=== PATIENT | female | born 1970 | race Caucasian/White ===

== ENCOUNTER 2016-06-07 19:48 | Observation (INO) | payer MEDICARE, MEDICAID ==
[~2016-06-07] VITALS: Ht 170.2 cm; Wt 86.0 kg
[~2016-06-07 19:48] MED LIST: BUSP10 PO; LAMI200T PO; LATU80TA PO; LORA-474 PO; PRIL40CA PO; VENL37.5 PO; XANA2TAB2 PO; ZOLP10TA3 PO
[2016-06-07 19:50] VITALS: BP 135/75; PULSE 77; RESP 18; TEMP 98.1; O2SAT 100
[2016-06-07] MEDS ORDERED: AMBI10TA PO (20:50)
[2016-06-07] MEDS ORDERED: LAMI200T PO (20:50)
[2016-06-07] MEDS ORDERED: HYDR-3516 PO (20:50)
[2016-06-07] MEDS ORDERED: LURA120T PO (20:50)
[2016-06-07] MEDS ORDERED: PROM25TA5 PO (20:50)
[2016-06-07] MEDS ORDERED: EFFE150C PO (20:50)
[2016-06-07] MEDS ORDERED: OMEP40CA2 PO (20:50)
[2016-06-07] MEDS ORDERED: LORazepam 2 MG/ML VIAL IV PUSH ONE (21:15)
[2016-06-07] MEDS ORDERED: diphenhydrAMINE HCL 50 MG/ML VIAL IVP ONE (21:15)
[2016-06-07] MEDS ORDERED: SODIUM CHLORIDE 0.9% FLUSH 10 ML FLUSH IVF PRN (21:15)
[2016-06-07] MEDS ORDERED: PROCHLORPERAZINE INJ 10 MG/2 ML VIAL IVS ONE (21:15)
[2016-06-07] MEDS ORDERED: HYDROmorphone HCL PF 2 MG/ML VIAL IVS ONE (21:15)
--- NOTE | 2016-06-07 21:43 | PD ---
HPI Chief Complaint: Headache Time Seen by Provider: 21:03 Travel History International Travel<30 days: No Contact w/Intl Traveler<30days: No Traveled to known affect area: No History of Present Illness HPI 46-year-old female arrives to the ER complaining of headache. She has suffered with headaches frequently for years. Today she reports a generalized headache for about 1 day. It started gradually. It has been progressively worsening. She was in the ER in [place] yesterday and underwent one CT imaging and lab work which was all normal. She was prescribed Phenergan. She reports no improvement with the Phenergan this morning. The headache severity had improved prior to discharge yesterday. This morning she woke up with a gradually worsening headache again. She reports photophobia. She's had no fever. She's had no neck stiffness. PFSH Past Medical History Hx Anticoagulant Therapy: No Anemia: Yes Anxiety: Yes Depression: Yes (POST ) Cardiovascular Problems: No Chemotherapy: No Cerebrovascular Accident: No Diabetes: No Diminished Hearing: No Gastrointestinal Disorders: Yes (PERITONITIS) Headaches: Yes (tension headaches ) Musculoskeletal: Yes (PARTIALY TORN ACL, COMPLETLY TORN MCL,AND POPLITEAL) Respiratory: No Immunizations Current: Yes Seizures: Yes Influenza Vaccination: Yes ?: Not LMP: dec 2015 : 1 Para: 1 Ovarian Cysts: Yes (RUPTURED) Tubal Ligation: Yes Past Surgical History Abdominal Surgery: Yes (GASTRIC BYPASS 2003) Hysterectomy: No Joint Replacement: Yes (total rt knee arthroplasty) Thoracic Surgery: Yes (L1,L3-5 FX ) Social History Alcohol Use: Yes (OCCASIONAL) Tobacco Use: No Substance Use: No Allergies-Medications (Allergen,Severity, Reaction): Coded Allergies: Fioricet (Verified Allergy, Severe, 06/07/16) Nonsteroidal Anti-Inflammatory Agts (Verified Allergy, Severe, GASTRIC BLEEDING, 07/12/15) Phenobarbital (Verified Allergy, Severe, RASH, 07/12/15) Ultram (Verified Allergy, Severe, Hives, BLEEDING, 07/12/15) Morphine (Verified Adverse Reaction, Intermediate, N/V, 07/12/15) Uncoded Allergies: STEROIDS (Allergy, Severe, GI BLEED, 01/13/11) Reported Meds & Prescriptions Reported Meds & Active Scripts Active Reported Ambien (Zolpidem Tartrate) 10 Mg Tab 10 Mg PO HS PRN Omeprazole 40 Mg Cap 40 Mg PO DAILY Effexor XR 24 HR (Venlafaxine HCl) 150 Mg Cap 150 Mg PO DAILY Latuda (Lurasidone) 120 Mg Tab 120 Mg PO DAILY Lamictal (Lamotrigine) 200 Mg Tab 200 Mg PO BID Phenergan (Promethazine HCl) 25 Mg Tab 25 Mg PO Q6H PRN Hydrocodone-Acetaminophen 5-325 mg Tab 1 Tab PO Q6H PRN Review of Systems Except as stated in HPI: all other systems reviewed are Neg General / Constitutional: No: Fever, Chills Musculoskeletal: Positive: Pain Physical Exam Narrative GENERAL: 46-year-old female well-nourished well-developed SKIN: Focused skin assessment warm/dry. HEAD: Atraumatic. Normocephalic. EYES: Pupils equal and round. No scleral icterus. No injection or drainage. Range of motion of the eyes normal. ENT: No nasal bleeding or discharge. Mucous membranes pink and moist. NECK: Trachea midline. No JVD. CARDIOVASCULAR: Regular rate and rhythm. No murmur appreciated. RESPIRATORY: No accessory muscle use. Clear to auscultation. Breath sounds equal bilaterally. GASTROINTESTINAL: Abdomen soft, non-tender, nondistended. Hepatic and splenic margins not palpable. MUSCULOSKELETAL: No obvious deformities. No clubbing. No cyanosis. No edema. NEUROLOGICAL: Awake and alert. No obvious cranial nerve deficits. Motor grossly within normal limits. Normal speech. PSYCHIATRIC: Appropriate mood and affect; insight and judgment normal. Data Data Last Documented VS Vital Signs Date Time Temp Pulse Resp B/P Pulse Ox O2 Delivery O2 Flow Rate FiO2 06/07/16 21:44 80 14 108/57 97 Room Air 06/07/16 19:50 98.1 Orders Complete Blood Count With Diff (06/07/16 21:15) Basic Metabolic Panel (Bmp) (06/07/16 21:15) Prothrombin Time / Inr (Pt) (06/07/16 21:15) Ecg Monitoring (06/07/16 21:15) Iv Access Insert/Monitor (06/07/16 21:15) Oximetry (06/07/16 21:15) Sodium Chloride 0.9% Flush (Ns Flush) (06/07/16 21:15) Hydromorphone Pf Inj (Dilaudid Pf Inj) (06/07/16 21:15) Diphenhydramine Inj (Benadryl Inj) (06/07/16 21:15) Prochlorperazine Inj (Compazine Inj) (06/07/16 21:15) Lorazepam Inj (Ativan Inj) (06/07/16 21:15) Hydromorphone Pf Inj (Dilaudid Pf Inj) (06/07/16 22:30) Ondansetron Inj (Zofran Inj) (06/07/16 22:30) Hydromorphone Pf Inj (Dilaudid Pf Inj) (06/07/16 23:30) Admit Order (Ed Use Only) (06/07/16 23:41) Labs Laboratory Tests Test 06/07/16 21:10 White Blood Count 9.2 TH/MM3 Red Blood Count 3.88 MIL/MM3 Hemoglobin 12.2 GM/DL Hematocrit 36.1 % Mean Corpuscular Volume 93.0 FL Mean Corpuscular Hemoglobin 31.4 PG Mean Corpuscular Hemoglobin 33.8 % Concent Red Cell Distribution Width 17.6 % Platelet Count 362 TH/MM3 Mean Platelet Volume 9.5 FL Neutrophils (%) (Auto) 66.9 % Lymphocytes (%) (Auto) 22.8 % Monocytes (%) (Auto) 8.5 % Eosinophils (%) (Auto) 0.6 % Basophils (%) (Auto) 1.2 % Neutrophils # (Auto) 6.1 TH/MM3 Lymphocytes # (Auto) 2.1 TH/MM3 Monocytes # (Auto) 0.8 TH/MM3 Eosinophils # (Auto) 0.1 TH/MM3 Basophils # (Auto) 0.1 TH/MM3 CBC Comment DIFF FINAL Differential Comment Prothrombin Time 10.5 SEC Prothromb Time International 1.0 RATIO Ratio Sodium Level 136 MEQ/L Potassium Level 3.7 MEQ/L Chloride Level 102 MEQ/L Carbon Dioxide Level 26.8 MEQ/L Anion Gap 7 MEQ/L Blood Urea Nitrogen 13 MG/DL Creatinine 0.65 MG/DL Estimat Glomerular Filtration 99 ML/MIN Rate Random Glucose 72 MG/DL Calcium Level 8.8 MG/DL MDM Medical Decision Making Medical Screen Exam Complete: Yes Emergency Medical Condition: Yes Medical Record Reviewed: Yes Differential Diagnosis Migraine, tension headache, complex migraine, chronic pain, hyper algesic state , opioid dependence, drug-seeking behavior Narrative Course CBC & BMP Diagram 06/07/16 21:10 The patient received multiple doses of Dilaudid. She also received Compazine and Zofran. She'll be admitted for intractable pain. Discussed with Dr De La Cruz. Head CT yesterday at OSH normal. Diagnosis Primary Impression: Headache Qualified Code: R51 - Intractable episodic headache, unspecified headache type Additional Impression: Intractable pain Admitting Information Admitting Physician Requests: Observation Chuckie Nash MD Jun 07, 2016 21:43
[2016-06-07 21:44] VITALS: BP 108/57; PULSE 80; RESP 14; O2SAT 97
[2016-06-07 22:15] LABS: AUTOMATED NEUTROPHIL # 6.1 TH/MM3 (1.8-7.7); BASOPHIL # 0.1 TH/MM3 (0-0.2); BASOPHIL % 1.2 % (0.0-2.0); EOSINOPHIL # 0.1 TH/MM3 (0-0.4); EOSINOPHIL % 0.6 % (0.0-4.0); HEMATOCRIT 36.1 % (35.0-46.0); HEMO FLAGS DIFF FINAL; LYMPH % 22.8 % (9.0-44.0); LYMPHOCYTE # 2.1 TH/MM3 (1.0-4.8); MEAN CORPUSCULAR HEMOGLOBIN 31.4 PG (27.0-34.0); MEAN CORPUSCULAR HGB CONC 33.8 % (32.0-36.0); MONO % 8.5 % (0.0-8.0); NEUT % 66.9 % (16.0-70.0); PLATELET COUNT 362 TH/MM3 (150-450); RED BLOOD COUNT 3.88 MIL/MM3 (4.00-5.30); RED CELL DISTRIBUTION WIDTH 17.6 % (11.6-17.2); WHITE BLOOD COUNT 9.2 TH/MM3 (4.0-11.0)
[2016-06-07 22:27] LABS: PROTHROMBIN TIME - PATIENT 10.5 SEC (9.8-11.6)
[2016-06-07] MEDS ORDERED: HYDROmorphone HCL PF 1 MG/ML VIAL IV PUSH ONE ×2 (22:30→23:30)
[2016-06-07] MEDS ORDERED: ONDANSETRON HCL 4 MG/2 ML VIAL IV PUSH ONE (22:30)
[2016-06-07 22:39] LABS: BICARBONATE 26.8 MEQ/L (21.0-32.0); POTASSIUM 3.7 MEQ/L (3.5-5.1)
[2016-06-07 23:30] VITALS: BP 125/66; PULSE 75; RESP 16; O2SAT 97
[2016-06-08] VITALS (7 sets, daily range): BP systolic 109–142; BP diastolic 66–94; PULSE 71–108; RESP 16–20; TEMP 97.9–98.9; O2SAT 94–98
[2016-06-08] MEDS ORDERED: BISACODYL 10 MG SUPP PR PRN
[2016-06-08] MEDS ORDERED: SODIUM CHLORIDE 0.9% FLUSH 10 ML FLUSH IV FLUSH PRN
[2016-06-08] MEDS ORDERED: ONDANSETRON HCL 4 MG/2 ML VIAL IVP PRN
[2016-06-08] MEDS ORDERED: ZOLPIDEM TARTRATE 10 MG TAB PO PRN
[2016-06-08] MEDS ORDERED: ACETAMINOPHEN 325 MG TAB PO PRN
[2016-06-08] MEDS: SODIUM CHLOR 0.9% 1000 ML INJ 1,000 ML IV SCH ×3 (00:56→20:45)
--- NOTE | 2016-06-08 03:30 | HHI.HP ---
HPI Service [facility] Primary Care Physician Non-Staff Admission Diagnosis MELÉNDEZ, Intractable Pain Diagnoses: (1) Headache Diagnosis: Principal (2) Intractable pain Diagnosis: Principal (3) Chronic pain Diagnosis: Principal Travel History International Travel<30 Days: No Contact w/Intl Traveler <30 Da: No Traveled to Known Affected Are: No History of Present Illness This is a 46-year-old female with a PMH of Anxiety, Depression, Headache and Chronic Pain on Disability who presented to the ER w/ complaints of severe 9/10 headache w/ associated nausea and vomiting. States symptoms started yesterday, seen at ER in [place], [facility] CT Head negative and d/c'd after 3 doses of IV Dilaudid. Reports symptoms improved at that time, however today had recurrent headache w/ "stabbing pain in my eye". On arrival, BP 125/75, HR 77, O2 sat 97 % on RA, Afebrile. Labs unremarkable. S/p Dilaudid 2mg IV, Benadryl 25mg IV, Compazine 10mg IV and Ativan 1mg IV at same time w/ absolutely no change in pain complaints per patient. Received additional Dilaudid 1mg IV x2 w/ minimal improvement. Per review of previous records, pt has apparently displayed typical drug-seeking behavior, demanding admission for continued narcotics per ER physician notes. This visit, pt has relayed wishes to be admitted for pain control on several occasions. Per patient, she follows w/ Butter Production Supervisor and has "high tolerance" for pain medications. Review of Systems Except as stated in HPI: all other systems reviewed are Neg ROS: 14 point review of systems otherwise negative. Past Family Social History Past Medical History PMH: Anxiety, Depression, Headache and Chronic Pain on Disability Past Surgical History PAST SURGICAL HISTORY: Right Total Knee Arthroplasty, Lumbar Surgery, Gastric Bypass Allergies: Coded Allergies: Fioricet (Verified Allergy, Severe, 06/07/16) Nonsteroidal Anti-Inflammatory Agts (Verified Allergy, Severe, GASTRIC BLEEDING, 07/12/15) Phenobarbital (Verified Allergy, Severe, RASH, 07/12/15) Ultram (Verified Allergy, Severe, Hives, BLEEDING, 07/12/15) Morphine (Verified Adverse Reaction, Intermediate, N/V, 07/12/15) Uncoded Allergies: STEROIDS (Allergy, Severe, GI BLEED, 01/13/11) Family History PAST FAMILY HISTORY: Reviewed. No h/o DM or CAD Social History PAST SOCIAL HISTORY: Occasional alcohol. Negative for tobacco or drugs. Patient is a former RN, currently on disability for back injury. Physical Exam Vital Signs Vital Signs Date Time Temp Pulse Resp B/P Pulse Ox O2 Delivery O2 Flow Rate FiO2 06/07/16 23:30 75 16 125/66 97 Room Air 06/07/16 21:44 80 14 108/57 97 Room Air 06/07/16 20:38 77 06/07/16 19:50 98.1 77 18 135/75 100 Room Air Physical Exam PE: GENERAL: Middle-aged white female in no acute distress. HEENT: PERRLA, EOMI. No scleral icterus or conjunctival pallor. No lid lag or facial droop. CARDIOVASCULAR: Regular rate and rhythm. No obvious murmurs to auscultation. No chest tenderness to palpation. RESPIRATORY: No obvious rhonchi or wheezing. Clear to auscultation. Breath sounds equal bilaterally. GASTROINTESTINAL: Abdomen soft, non-tender, nondistended. BS normal. MUSCULOSKELETAL: Extremities without clubbing, cyanosis, or edema. No obvious deformities. NEUROLOGICAL: Awake, alert and oriented x4. No focal neurologic deficits. Moving both upper and lower extremities spontaneously. Laboratory Laboratory Tests Test 06/07/16 21:10 White Blood Count 9.2 Red Blood Count 3.88 Hemoglobin 12.2 Hematocrit 36.1 Mean Corpuscular Volume 93.0 Mean Corpuscular Hemoglobin 31.4 Mean Corpuscular Hemoglobin 33.8 Concent Red Cell Distribution Width 17.6 Platelet Count 362 Mean Platelet Volume 9.5 Neutrophils (%) (Auto) 66.9 Lymphocytes (%) (Auto) 22.8 Monocytes (%) (Auto) 8.5 Eosinophils (%) (Auto) 0.6 Basophils (%) (Auto) 1.2 Neutrophils # (Auto) 6.1 Lymphocytes # (Auto) 2.1 Monocytes # (Auto) 0.8 Eosinophils # (Auto) 0.1 Basophils # (Auto) 0.1 CBC Comment DIFF FINAL Differential Comment Prothrombin Time 10.5 Prothromb Time International 1.0 Ratio Sodium Level 136 Potassium Level 3.7 Chloride Level 102 Carbon Dioxide Level 26.8 Anion Gap 7 Blood Urea Nitrogen 13 Creatinine 0.65 Estimat Glomerular Filtration 99 Rate Random Glucose 72 Calcium Level 8.8 Result Diagram: 06/07/16210906/07/162109 Assessment and Plan Problem List: (1) Intractable pain ICD Code: R52 Status: Acute (2) Headache ICD Code: R51 Status: Acute (3) Chronic pain ICD Code: G89.29 Status: Acute Assessment and Plan A/P: 1. Intractable Pain: c/o ongoing headache x1 day, previously seen in [place] w/ negative CT Head per patient. S/p multiple doses of Dilaudid IV, Compazine, Ativan and Benadryl, pt reports minimal relief. Vitals stable, labs unremarkable. Per review of previous records, pt w/ drug-seeking behavior, requesting admission for pain control on several occasions on this presentation. Will admit for Observation. Explained to patient that goal is to decrease pain complaints to a tolerable level, unlikely for her to have complete resolution of pain in light of her being a chronic pain patient. Plan is for her to follow w/ her paint coating machine operator as outpatient for adjustments to her home medications. 2. Headache: h/o headache, resume home Lamictal, analgesics as above. 3. Chronic Pain: h/o Chronic Back Pain following back injury per patient, currently on Disability for injury. Previous h/o Dilaudid Pain Pump, apparently non-functional now. Resume home medications, follow up w/ Butter Production Supervisor at time of d/c 4. DVT Prophylaxis: SCD/Teds. 5. Social work for d/c planning as needed. 6. Case discussed w/ ER physician at length. Problem Qualifiers (1) Headache: Qualified Code: R51 - Intractable episodic headache, unspecified headache type Kaylene De La Cruz MD Jun 08, 2016 03:30
[2016-06-08] MEDS: LORazepam 2 MG/ML VIAL IV PUSH PRN ×5 (03:37→23:47)
[2016-06-08] MEDS: diphenhydrAMINE HCL 50 MG/ML VIAL IV PUSH PRN ×3 (03:38→17:12)
[2016-06-08] MEDS: PROCHLORPERAZINE INJ 10 MG/2 ML VIAL IVS PRN ×3 (03:38→17:11)
[2016-06-08] MEDS: HYDROmorphone HCL PF 1 MG/ML VIAL IV PUSH PRN ×5 (03:38→23:46)
[2016-06-08 04:08] LABS: AUTOMATED NEUTROPHIL # 3.2 TH/MM3 (1.8-7.7); BASOPHIL % 0.7 % (0.0-2.0); EOSINOPHIL # 0.1 TH/MM3 (0-0.4); EOSINOPHIL % 1.3 % (0.0-4.0); HEMATOCRIT 32.6 % (35.0-46.0); HEMO FLAGS DIFF FINAL; LYMPHOCYTE # 1.9 TH/MM3 (1.0-4.8); MEAN CELL VOLUME 93.5 FL (80.0-100.0); MEAN CORPUSCULAR HEMOGLOBIN 30.3 PG (27.0-34.0); MEAN CORPUSCULAR HGB CONC 32.4 % (32.0-36.0); MONO % 11.3 % (0.0-8.0); NEUT % 54.7 % (16.0-70.0); PLATELET COUNT 271 TH/MM3 (150-450); RED BLOOD COUNT 3.48 MIL/MM3 (4.00-5.30); RED CELL DISTRIBUTION WIDTH 17.3 % (11.6-17.2); WHITE BLOOD COUNT 5.9 TH/MM3 (4.0-11.0)
[2016-06-08 04:14] LABS: ALT (GPT) 27 U/L (10-53); ANION GAP 7 MEQ/L (5-15); AST (GOT) 18 U/L (15-37); BICARBONATE 27.7 MEQ/L (21.0-32.0); BLOOD UREA NITROGEN 9 MG/DL (7-18); CHLORIDE 106 MEQ/L (98-107); GLOMERULAR FILTRATION RATE 128 ML/MIN (>89); POTASSIUM 3.4 MEQ/L (3.5-5.1); SODIUM (NA) 141 MEQ/L (136-145)
[2016-06-08 04:16] LABS: ALKALINE PHOSPHATASE 75 U/L (45-117); TOTAL BILIRUBIN ADULT 0.4 MG/DL (0.2-1.0)
[2016-06-08] MEDS: lamoTRIgine 100 MG TAB PO SCH ×2 (08:34→20:46)
[2016-06-08] MEDS: LURASIDONE 40 MG TAB PO SCH (08:35)
[2016-06-08] MEDS: VENLAFAXINE HCL XR 75 MG CAP PO SCH (08:36)
[2016-06-08] MEDS: SODIUM CHLORIDE 0.9% FLUSH 10 ML FLUSH IV FLUSH SCH ×2 (08:52→20:46)
--- NOTE | 2016-06-08 12:46 | RADRPT ---
EXAM DATE/TIME: 06/08/2016 12:20 [facility] COMPARISON: CT BRAIN W/O CONTRAST, January 15, 2013, 17:29. INDICATIONS : Cephalgia and dizziness since Wednesday. RADIATION DOSE: 56.77 CTDIvol (mGy) MEDICAL HISTORY : Seizures. SURGICAL HISTORY : None. ENCOUNTER: Initial ACUITY: 3 days PAIN SCALE: 0/10 LOCATION: cranial TECHNIQUE: Multiple contiguous axial images were obtained of the head. Using automated exposure control and adj ustment of the mA and/or kV according to patient size, radiation dose was kept as low as reasonably a chievable to obtain optimal diagnostic quality images. FINDINGS: CEREBRUM: The ventricles are normal for age. No evidence of midline shift, mass lesion, hemorrhage or acute in farction. No extra-axial fluid collections are seen. POSTERIOR FOSSA: The cerebellum and brainstem are intact. The 4th ventricle is midline. The cerebellopontine angle i s unremarkable. EXTRACRANIAL: The visualized portion of the orbits is intact. SKULL: The calvaria is intact. No evidence of skull fracture. CONCLUSION: No acute disease. Shan Vicente MD FACR on June 08, 2016 at 12:44 Board Certified Radiologist. This report was verified electronically.
--- NOTE | 2016-06-08 21:15 | MB ---
cc: CARMELINA DEGROOT MD DATE OF CONSULTATION 06/08/2016 REASON FOR CONSULTATION Intractable migraine headache. HISTORY OF PRESENT ILLNESS Ms. Rodriguez is a 46-year-old female with past medical history significant for chronic headache, depression, anxiety and chronic pain on disability presented to the [facility] ER with complaints of very severe headache with associated nausea and vomiting. The patient states that symptoms started on Wednesday night and seen in the ER at [place]. Head CT scan was negative. She was discharged after she received three doses of IV Dilaudid, reports relieve of the symptoms and then the symptoms recurred with pain mainly in the front and the forehead and described as, "stabbing pain in both eyes", associated with nausea and vomiting. The patient describes her headache as, "tension headache" and this has been ongoing for 10 years and she denies that she has migraine. "I do not have migraine headaches". It is only tension headache and they are usually associated with her menstrual cycle and alcohol seems to aggravate this headache. She denies any family history of migraine headache. She states that her headache is usually in the front or maybe in the back of her head with associated nausea and vomiting and visual blurring and visual symptoms. Denies any relation to noises or light. She was followed up by a neurologist. He had her on Vicodin but she does not follow with a neurologist at this time. The patient uses a lot of pain medication and she was on a Dilaudid pump at some time and follows with pain management for chronic pain in the back, chronic tension headache and chronic neck pain. REVIEW OF SYSTEMS A 12-point review of systems is negative except for what is stated in the HPI. PAST MEDICAL HISTORY 1. Anxiety, depression. 2. Headache. 3. Chronic pain on disability PAST SURGICAL HISTORY 1. Right total knee arthroplasty. 2. Lumbar surgery. 3. Gastric bypass. 4. She has rods and titanium in her body. ALLERGIES FIORICET, NON STEROIDAL ANTI-INFLAMMATORY, PHENOBARBITAL, ULTRAM, AND MORPHINE. FAMILY HISTORY Noncontributory, SOCIAL HISTORY Occasionally drinks alcohol. Denies tobacco or illicit drug use. The patient is a former registered nurse, currently on disability for back injury. PHYSICAL EXAMINATION GENERAL: The patient is a good historian and not in acute distress with family at the bedside. HEENT: Atraumatic, normocephalic. Intact hearing. Intact vision. NECK: Supple. No signs of meningeal irritation. No carotid bruit. CARDIOVASCULAR: Regular rate and rhythm. LUNGS: Clear to auscultation. No wheezes. ABDOMEN: Soft abdomen. MUSCULOSKELETAL: Extremities without clubbing. No cyanosis. Moves all extremities equally. NEUROLOGIC: Awake, alert, oriented to time, person and place. Cranial nerves II-XII are grossly intact. Motor system 5/5 bilateral, symmetrical with occasional give out because of pain. Superficial temperature and pain are intact bilateral and symmetrical both upper and lower extremities. Reflexes are 2+ bilateral, symmetrical. Plantars are bilaterally downgoing. [id number] and [id number]-[id number]-syba are bilaterally. PSYCHOLOGIC: Normal mood and behavior. No visual hallucinations. LABORATORY DATA White blood cells 9.2, hemoglobin 12.2, MCV 93, platelet count 362. Sodium 136, potassium 3.7, anion gap 7, BUN 13, creatinine 0.65, calcium 8.8. IMAGING STUDIES Diagnostic imaging: Head CT scan without contrast was reported with no acute intracranial disease. DIAGNOSTIC IMPRESSION 1. Chronic tension headache. 2. Anxiety / depression. 3. Chronic pain. PLAN 1. Neurological checks q. four hourly. 2. CTA head with contrast. 3. Resume home medication and medication of pain management. She currently uses. 4. Examination is nonfocal and if CTA is unremarkable the patient can follow up with pain management as an outpatient. Thank you for the opportunity to participate in the care of your patient. MD MÓNICA Farrell/MILAGRO /8:00 PM /8:57 PM VANESSA
[2016-06-08 22:46] LABS: BETA HCG QUANT LESS THAN 1 MIU/ML (0-5)
[2016-06-09 01:27] VITALS: BP 136/74; PULSE 66; RESP 23; TEMP 98.7; O2SAT 98
[2016-06-09 03:36] VITALS: BP 148/71; PULSE 91; RESP 18; TEMP 98.7; O2SAT 99
[2016-06-09] MEDS: SODIUM CHLOR 0.9% 1000 ML INJ 1,000 ML IV SCH (06:22)
[2016-06-09] MEDS: HYDROmorphone HCL PF 1 MG/ML VIAL IV PUSH PRN ×2 (06:23→10:38)
[2016-06-09] MEDS: LORazepam 2 MG/ML VIAL IV PUSH PRN ×2 (06:23→10:37)
[2016-06-09 08:19] VITALS: BP 133/81; PULSE 79; RESP 17; TEMP 97.5; O2SAT 92
[2016-06-09] MEDS: SODIUM CHLORIDE 0.9% FLUSH 10 ML FLUSH IV FLUSH SCH (09:00)
[2016-06-09] MEDS: lamoTRIgine 100 MG TAB PO SCH (09:56)
[2016-06-09] MEDS: LURASIDONE 40 MG TAB PO SCH (09:57)
[2016-06-09] MEDS: VENLAFAXINE HCL XR 75 MG CAP PO SCH (09:57)
[2016-06-09] MEDS ORDERED: IOHEXOL 350 MG/ML 10 ML VIAL (for RAD DIAG) IV ONE (10:38)
[2016-06-09] MEDS ORDERED: CYCLOBENZAPRINE HCL 10 MG TAB PO PRN (10:45)
[2016-06-09] MEDS ORDERED: CYCLOBENZAPRINE HCL 10 MG TAB PO ONE (10:45)
--- NOTE | 2016-06-09 10:51 | HHI.PR ---
Subjective Remarks Follow-up for headache. The patient continues to complain of headache and associated symptoms today, unchanged. She states the pain medicine helps. She states she has pain medicine at home and doesn't need anymore. She has associated double vision, blurry vision. She states the headache is all over her head. She describes it as throbbing and stabbing. The headache radiates to her neck and shoulders. She has not tried muscle relaxers before. Objective Vitals Vital Signs Date Time Temp Pulse Resp B/P Pulse Ox O2 Delivery O2 Flow Rate FiO2 06/09/16 08:19 97.5 79 17 133/81 92 06/09/16 06:55 20 06/09/16 03:36 98.7 91 18 148/71 99 06/09/16 01:27 98.7 66 23 136/74 98 06/08/16 20:05 98.8 71 18 128/71 98 06/08/16 15:34 98.9 108 19 109/66 95 06/08/16 11:46 97.9 107 20 141/94 97 Result Diagram: 06/08/16 0333 06/08/16 0333 Imaging Last Impressions Head CT 06/08/16 0000 Signed Impressions: Service Date/Time: Wednesday, June 08, 2016 12:20 - CONCLUSION: No acute disease. Shan Vicente MD FACR Objective Remarks GENERAL: Well-developed well-nourished. In no acute distress. Appears comfortable. SKIN: Warm and dry. No lesions noted. HEENT: Normocephalic. Pupils equal and round. Mucous membranes pink and moist. CARDIOVASCULAR: Regular rate and rhythm. No murmur appreciated. RESPIRATORY: No accessory muscle use. Clear to auscultation. Breath sounds equal bilaterally. GASTROINTESTINAL: Abdomen soft, non-tender, nondistended. Bowel sounds x4. MUSCULOSKELETAL: Tense posterior cervical and trapezius muscles with palpation. No clubbing or cyanosis. No edema. NEUROLOGICAL: Awake and alert. No focal neurological deficits. Moves upper and lower extremities spontaneously. Normal speech. PSYCHIATRIC: Slightly anxious mood and affect; insight and judgment normal. A/P Problem List: (1) Intractable pain ICD Code: R52 Status: Acute (2) Headache ICD Code: R51 Status: Acute (3) Chronic pain ICD Code: G89.29 Status: Chronic Assessment and Plan 46-year-old female with a PMH of Anxiety, Depression, Headache and Chronic Pain on Disability who presented w/ complaints of acute exacerbation of chronic headache Intractable Pain from acute exacerbation of chronic tension headache: Head CT unremarkable. Continue home Lamictal. IV Dilaudid as needed for pain for now. Plan to resume home [place] at [place]. Neurology consulted, ordered CTA. Per neurology, patient is clear for discharge and outpatient follow-up with her paint prepper as outpatient for adjustments to her home medications. Cervical muscle spasms: Could be contributing to headache as above. Flexeril as needed. Chronic Pain: h/o Chronic Back Pain following back injury per patient, currently on Disability for injury. Previous h/o Dilaudid Pain Pump, apparently non-functional now. Continue home medications, follow up w/ Brush Washer at time of d/c DVT Prophylaxis: SCD/Teds. Written by Christian Silva, acting as scribe for Dr. Gasca on 06/09/16 at 10:51. All or portions of this note were transcribed by maria elena ONOFRE. I, Dr. Ann Gasca personally performed the history, physical exam, and medical decision making; and confirmed the accuracy of the information in the transcribed note. Authenticated by Dr. Ann Gasca on 06/09/16 at 10:51. Discharge Planning Discharge planning to home if head CTA is negative. Will prescribe Flexeril as needed for muscle spasms at [place]. Problem Qualifiers (1) Headache: Qualified Code: R51 - Intractable episodic headache, unspecified headache type Christian Silva Jun 09, 2016 10:51 Ann Gasca MD Jun 09, 2016 16:13
[2016-06-09 11:34] VITALS: BP 144/85; PULSE 76; RESP 18; TEMP 98; O2SAT 94
--- NOTE | 2016-06-09 11:52 | RADRPT ---
EXAM DATE/TIME: 06/09/2016 10:10 [facility] COMPARISON: CT BRAIN W/O CONTRAST, June 08, 2016, 12:20. INDICATIONS : Cephalgia. Dizziness. Evaluate for aneurysm. IV CONTRAST: 70 cc Omnipaque 350 (iohexol) IV RADIATION DOSE: 16.04 CTDIvol (mGy) MEDICAL HISTORY : Seizures. SURGICAL HISTORY : Gastric bypass. Tubal ligation. ENCOUNTER: Initial ACUITY: 4 - 6 days PAIN SCALE: 5/10 LOCATION: cranial TECHNIQUE: Volumetric scanning was performed using a multi-row detector CT scanner. The data was post processed with a variety of visualization algorithms including full volume maximum intensity projection, multi -planar sliding thin slab reformation, curved planar reformation, and surface rendering techniques. Using automated exposure control and adjustment of the mA and/or kV according to patient size, radiat ion dose was kept as low as reasonably achievable to obtain optimal diagnostic quality images. FINDINGS: There is excellent visualization of the major intracranial arteries out to the second-order branch ve ssels. There is no evidence for aneurysm, vessel truncation or stenosis, and no evidence for vascula r malformation. CONCLUSION: Normal examination. Naresh Montesinos Jr., MD on June 09, 2016 at 11:43 Board Certified Radiologist. This report was verified electronically.
[2016-06-09] MEDS ORDERED: CYCL1TAB29 PO (12:49)
--- NOTE | 2016-06-09 16:14 | HHI.DCPOC ---
Discharge Care Plan Goals to Promote Your Health * To prevent worsening of your condition and complications * To maintain your health at the optimal level Directions to Meet Your Goals Take your medications as prescribed Follow your dietary instruction Follow activity as directed Keep your appointments as scheduled Take your immunizations and boosters as scheduled If your symptoms worsen call your PCP, if no PCP go to Urgent Care Center or Emergency Room Smoking is Dangerous to Your Health. Avoid second hand smoke Call the 24-hour hour crisis hotline for domestic abuse at Ann Gasca MD Jun 09, 2016 16:14
== END 2016-06-09 14:08 | disposition home or self-care (01) ==
LOC: NEPC 19:48 → NEDA 23:43 → NEDH 06-08 03:44 → NEPGCP 06-08 09:13
PROVIDERS: ADMIT Hospitalist; ATTEND Hospitalist
DX: R51 Headache (principal); G89.29 Other chronic pain; M54.9 Dorsalgia, unspecified; D64.9 Anemia, unspecified; F41.9 Anxiety disorder, unspecified; Z98.84 Bariatric surgery status; Z96.651 Presence of right artificial knee joint; Z88.5 Allergy status to narcotic agent; Z88.8 Allergy status to other drugs, medicaments and biological substances
CPT/HCPCS: 70450; 70496; 80048; 80053; 84702; 85025; 85610; 96374; 96375; 96376; 99284; G0378; J0780; J1170; J1200; J2060; J2405; J7030; Q9967